=== PATIENT | male | born 1945 | race Caucasian/White ===

== ENCOUNTER 2021-06-11 09:46 | Outpatient (REF) | payer MEDICARE, SELFPAY ==
--- NOTE | 2021-06-11 13:30 | MHC.AU.AEV ---
Adult Audiological Evaluation Date of Visit: 06/11/21 Reason for Appointment: History of hearing loss and Meniere's Disease. Patient reports that in 2019 he received a hearing aid for his right ear. He still feels he is struggling to hear speech, even with the hearing aid on. He notices the most difficulty when in groups or in background noise. Does patient feel they have a hearing loss?: Yes If Yes, Which Ear?: Both Ears When Was Hearing Difficulty First Noticed?: Around 2009 Has hearing been tested previously?: Yes Previous Hearing Test Results: At Dr. Narvaez's office- Results not available for immediate review Ear History: Ear Deformity: None Reported Recent Ear Drainage: None Reported Recent Ear Pain: None Reported Family History of Hearing Loss?: No Recent Ear Infections: None Reported Ear Infections in Childhood: None Reported History of Ear Wax Buildup: None Reported Previous Ear Surgery: None Reported Bothersome Tinnitus/Ringing/Noises in Ears: Both Ears Ear used on the phone: Left Ear Blocked/Full Sensation in Ear(s): None Reported History of occupational noise exposure?: Yes: 40 Years History: No Medical History: Medical History: Chronic Kidney Disease Stage 3, Hypertension, Thyroid Disease Medication List: Pravastatin, Lisinopril, Levothyroxin, Multivitamin Hearing Instrument History- Right Ear: Shake Cutter: OtDivergence Model: Ria2 Pro Serial Number: [id number] Dispensed By: Office of Dr. Narvaez Date of Fittin Otoscopy: Right Ear: Unremarkable Left Ear: Unremarkable Tympanometry: Tympanometry performed due to: To assess integrity of the middle ear system Right Ear: Normal Middle Ear System (Type A) Left Ear: Normal Middle Ear System (Type A) Hearing Evaluation: Transducer(s) Used: Insert Earphones Method: Conventional Audiometry Stimuli Used: Pure Tones Right Ear: Description of Hearing: Moderate to severe sensorineural hearing loss Left Ear: Description of Hearing: Moderate to severe sensorineural hearing loss Speech Recognition Threshold (SRT): Method Used: Recorded Lists Stimuli Used: Spondee Words Right Ear: 55 dBHL Left Ear: 50 dBHL Word Discrimination: Method: Recorded Lists Word Lists Used:: W-22 Right Ear: 44% at 90 dBHL Left Ear: 80% at 85 dBHL Most Comfortable Level (MCL): Right Ear: 90 dBHL Left Ear: 85 dBHL Recommendations: Audiological re-evaluation in one year. Patient is interested in new amplification. See Hearing Aid Evaluation report for details. Diagnosis: Primary Diagnosis: H90.3 Bilateral Sensorineural Hearing Loss Signature: Provider: Diana Hookre, GERALDINE-A
== END 2021-06-11 09:47 | disposition home or self-care (01) ==
LOC: HO.SH 09:46
PROVIDERS: Visit Provider Internal Medicine
DX: H90.3 Sensorineural hearing loss, bilateral (principal)
CPT/HCPCS: 92557; 92567

== ENCOUNTER 2021-06-11 10:58 | Outpatient (REF) | payer SELFPAY ==
--- NOTE | 2021-06-11 15:15 | MHC.AU.HAS ---
Hearing Aid Evaluation Date of Visit: 06/11/21 Historical Information: Description of Hearing: Moderate to severe sensorineural hearing loss Current personal amplification information, if applicable: Right-sided Oticon Ria2 Pro RITE obtained in 2019 from another clinic Summary: Patient was seen for audiological evaluation (see separate report for details). Patient received a right-sided Oticon Ria2 Pro RITE from another clinic in 2019. He has still been having significant hearing difficulty, even when he is wearing the hearing aid. He reports that he was told he did not need a hearing aid on his left ear at the time (2019 test results were not available for immediate review), despite having hearing loss in both ears. As of today's testing, pure tone results show symmetrical moderate to severe hearing loss. His word discrimination is 44% in the right ear and 80% in the left ear. Binaural amplification is highly recommended. Discussed options of either getting a new hearing aid for his left ear/using his current hearing aid on the right ear or getting a new pair of hearing aids. He would prefer to get a new pair of hearing aids so that they work together. He would like rechargeable for ease of use. Hearing Aid Prescription: Based on the individual?s shared listening needs, communication environments, dexterity, desire for connectivity, and personal preferences, the following prescription for amplification has been made: Right ear: Verifying Machine Operator: Quisic Model: Audeo P70-R Battery Size: Rechargeable Color: Champagne Set Up Operator Tool: 3M Type of Mold: SlimTip Acrylic Left ear: Verifying Machine Operator: Phonak Model: Audeo P70-R Battery Size: Rechargeable Color: Champagne Set Up Operator Tool: 3M Type of Mold: SlimTip Acrylic Action Taken/Action Needed: Earmold Impressions Taken Hearing Instrument Fitting to be scheduled when materials arrive Paid $350 deposit Primary Diagnosis: H90.3 Bilateral Sensorineural Hearing Loss Signature: Provider: Diaan Hooker, GERALDINE-A
--- NOTE | 2021-06-11 15:27 | MHC.AU.MED ---
Medical Clearance for Hearing Instrumentation Date: 06/11/21 Patient Name: Terell Sotomayor Date of : 1945 Referring Provider: Wilber Wolfe MD We have seen your patient on 06/11/21 and have determined that they are a candidate for amplification (See accompanying report). Specifically, they would benefit from: Hearing aid use in both ears There is a statute that addresses Medical Evaluation Requirements prior to fitting a patient with a hearing aid. According to [place] statute 265 CMR:6.03(1), (a) General. Except as provided in 265 CMR 6.03(1)(b), a nc manager shall not sell a hearing aid unless the prospective user has presented to the nc manager a written statement signed by a licensed physician that states that the patient's hearing loss has been medically evaluated and the patient may be considered a candidate for a hearing aid. The medical evaluation must have taken place within the preceding six months. Please note: Due to the [place] Statute referenced above, we cannot accept a signature other than that of a licensed physician. SHEET ROLLER OPERATOR and PA signatures cannot be accepted. I am in agreement with the above recommendation. There is no medical contraindication for hearing instrumentation. Physician Signature Date Physician Name (Printed)
== END 2021-06-11 10:59 | disposition home or self-care (01) ==
LOC: HO.HAP 10:58
PROVIDERS: Visit Provider Internal Medicine
DX: Z46.1 Encounter for fitting and adjustment of hearing aid (principal); H90.3 Sensorineural hearing loss, bilateral
CPT/HCPCS: 92591

== ENCOUNTER 2021-07-04 12:57 | Outpatient (REF) | payer SELFPAY ==
--- NOTE | 2021-07-04 14:49 | MHC.AU.HFA ---
Hearing Instrument Fitting- Adult- Binaural Date of Visit: 07/04/21 Hearing Instruments Dispensed: Right Ear: Trade Specialist: Phonak Model: Audeo P70-R Serial Number: [id number] Repair Warranty: 09/16/2024 Loss and Damage Warranty: 09/16/2024 Battery Size: Rechargeable Color: Champagne Mirror Framer: 3M Type of Mold: SlimTip Acrylic #[id number] Warranty 10/17/2021 Type of Wax Guard: CeruStop Left Ear: Trade Specialist: Phonak Model: Audeo P70-R Serial Number: [id number] Repair Warranty: 09/16/2024 Loss and Damage Warranty: 09/16/2024 Battery Size: Rechargeable Color: Champagne Mirror Framer: 3M Type of Mold: SlimTip Acrylic #[id number] Warranty 10/17/2021 Type of Wax Guard: CeruStop Summary of Fitting: Feedback manager outpatient run. Verifit performed and levels adjusted to better reach targets. Patient felt 100% target was too loud. Lowered until patient felt it was comfortable, at 88%. Occlusion compensation set to medium. Patient was pleased with the sound of the instruments. Hearing aid care and maintenance were discussed and practiced. Patient does not currently have a smartphone. Recommendations: A hearing instrument follow-up was scheduled. Paid balance. Diagnosis Code(s): Primary Diagnosis: H90.3 Bilateral Sensorineural Hearing Loss Signature: Provider: Diana Hooker, GERALDINE-A
== END 2021-07-04 12:58 | disposition home or self-care (01) ==
LOC: HO.HAP 12:57
PROVIDERS: Visit Provider Internal Medicine
DX: Z46.1 Encounter for fitting and adjustment of hearing aid (principal); H90.3 Sensorineural hearing loss, bilateral
CPT/HCPCS: V5261; V5299

== ENCOUNTER 2021-07-08 11:04 | Outpatient (REF) | payer SELFPAY ==
--- NOTE | 2021-07-08 16:24 | MHC.AU.HFU ---
Hearing Instrument Follow-Up- Binaural Date of Visit: 07/08/21 Right Ear: Billet Header: Phonak Model: Audeo P70-R Serial Number: [id number] Repair Warranty: 09/16/2024 Loss and Damage Warranty: 09/16/2024 Battery Size: Rechargeable Color: Champagne Radiologic Technician: 3M Type of Mold: SlimTip Acrylic #[id number] Warranty 10/17/2021 Type of Wax Guard: CeruStop Dispensed By: [facility] Date of Fittin07/04/2021 Left Ear: Billet Header: Phonak Model: Audeo P70-R Serial Number: [id number] Repair Warranty: 09/16/2024 Loss and Damage Warranty: 09/16/2024 Battery Size: Rechargeable Color: Champagne Radiologic Technician: 3M Type of Mold: SlimTip Acrylic #[id number] Warranty 10/17/2021 Type of Wax Guard: Dispensed By: [facility] Date of Fittin07/04/2021 Follow-Up Summary: Patient reports that the hearing aids keep falling out of his ears. He notes that he is not sure if he is putting them in right. He also noted that the aids slipped out of his ears shortly after leaving the office with them last week. Checked how he had them inserted- left was in correctly, but right slim tip was turned a bit and in sideways. Recommend having canal locks added so the don't slide out as easily and are easier to tell which way they are suppose to be oriented in the ear. He was agreeable to this plan. He notes that otherwise the sound quality has been very good. Recommendations: Remake order faxed to [facility]. Has a follow-up visit scheduled for 07/21. Will keep it for now, but if molds come in sooner he would like to be notified and come in then. Signature:Provider: Diana Tan, [facility]
== END 2021-07-08 11:05 | disposition home or self-care (01) ==
LOC: HO.HAP 11:04
PROVIDERS: Visit Provider Internal Medicine
DX: Z13.89 Encounter for screening for other disorder (principal)

== ENCOUNTER 2021-07-21 09:06 | Outpatient (REF) | payer SELFPAY | END 2021-07-21 09:07 | disposition home or self-care (01) | LOC: HO.HAP 09:06 | PROVIDERS: Visit Provider Internal Medicine | DX: Z13.89 Encounter for screening for other disorder (principal) ==

== ENCOUNTER 2021-08-14 14:12 | Outpatient (REF) | payer SELFPAY | END 2021-08-14 14:13 | disposition home or self-care (01) | LOC: HO.HAP 14:12 | PROVIDERS: Visit Provider Internal Medicine | DX: Z13.89 Encounter for screening for other disorder (principal) ==

== ENCOUNTER 2022-02-11 10:56 | Outpatient (REF) | payer SELFPAY ==
--- NOTE | 2022-02-12 08:19 | MHC.AU.HA3 ---
Hearing Instrument Follow-Up- Binaural Date of Visit: 02/11/22 Right Ear: Kade, , Color, Serial Number: Corona Gutierrezeo P70-R, #[id number], Lisbeth Passenger Car Cleaning Supervisor Repair Warranty: 09/16/2024 Passenger Car Cleaning Supervisor Loss and Damage Warranty: 09/16/2024 [facility] rService Plan: 09/16/2024 Battery Size: Rechargeable Profile Grinder Technician/Slim Tube: 3M Earmold/Dome/CShell/SlimTip:Currently using: cShell w/canal lock #[id number] Warranty 01/29/2022 Also has (not currently in use): SlimTip Acrylic #[id number] Warranty 10/17/2021 Type of Wax Guard: CeruStop Dispensed By: [facility] Date of Fittin07/04/2021 Left Ear: Kade, , Color, Serial Number: Corona Gutierrezeo P70-R, #[id number] Passenger Car Cleaning Supervisor Repair Warranty: 09/16/2024 Passenger Car Cleaning Supervisor Loss and Damage Warranty: 09/16/2024 [facility] Service Plan: 09/16/2024 Battery Size: Rechargeable Profile Grinder Technician/Slim Tube: 3M Earmold/Dome/CShell/SlimTip: Currently using: cShell w/canal lock #[id number] Warranty 01/29/2022 Also has (not currently in use): SlimTip Acrylic #[id number] Warranty 10/17/2021 Type of Wax Guard: CeruStop Dispensed By: [facility] Date of Fittin07/04/2021 Follow-Up Summary: Patient reports that since the new cShells were put on, things have sounded echoy in his left ear. He feels he hears better by taking the left hearing aid out. He has also started to notice he is getting the low battery warning after about 3 hours. In [employer], updated acoustics to reflect cShells and acoustic coupling code. Re-ran feedback test. Lowered overall gain in left hearing aid by 2 steps. Patient reported significant improvement in sound. He did not feel the left side was overpowering the right anymore. Patient's cShells were placed on a loaner pair of instruments (Phonak Audeo P70-R Trial #[id number], [id number]). His hearing aids will be sent to [facility] to address the battery drain issue. Recommendations: Patient will be contacted when the repaired hearing aids have arrived. Diagnosis Code(s): Primary Diagnosis: H90.3 Bilateral Sensorineural Hearing Loss Signature: Provider: Lauren Hooker, GERALDINE-A
== END 2022-02-11 10:57 | disposition home or self-care (01) ==
LOC: HO.HAP 10:56
PROVIDERS: Visit Provider Internal Medicine
DX: Z13.89 Encounter for screening for other disorder (principal)

== ENCOUNTER 2022-02-25 10:56 | Outpatient (REF) | payer SELFPAY | END 2022-02-25 10:57 | disposition home or self-care (01) | LOC: HO.HAP 10:56 | PROVIDERS: Visit Provider Internal Medicine | DX: Z46.1 Encounter for fitting and adjustment of hearing aid (principal); H90.3 Sensorineural hearing loss, bilateral | CPT/HCPCS: V5267 ==

== ENCOUNTER 2022-08-21 10:49 | Outpatient (REF) | payer SELFPAY | END 2022-08-21 10:50 | disposition home or self-care (01) | LOC: HO.HAP 10:49 | PROVIDERS: Visit Provider Internal Medicine | DX: Z46.1 Encounter for fitting and adjustment of hearing aid (principal); H90.3 Sensorineural hearing loss, bilateral | CPT/HCPCS: V5267 ==

== ENCOUNTER 2023-04-09 10:21 | Outpatient (REF) | payer SELFPAY | END 2023-04-09 10:22 | disposition home or self-care (01) | LOC: HO.HAP 10:21 | PROVIDERS: Visit Provider Internal Medicine | DX: Z46.1 Encounter for fitting and adjustment of hearing aid (principal); H90.3 Sensorineural hearing loss, bilateral | CPT/HCPCS: V5267 ==

== ENCOUNTER 2024-01-13 10:39 | Outpatient (REF) | payer SELFPAY | END 2024-01-13 10:40 | disposition home or self-care (01) | LOC: HO.HAP 10:39 | PROVIDERS: Visit Provider Internal Medicine | DX: Z46.1 Encounter for fitting and adjustment of hearing aid (principal); H90.3 Sensorineural hearing loss, bilateral | CPT/HCPCS: V5267 ==